=== PATIENT | female | born 1990 | race American Indian/Alaskan Native ===

== ENCOUNTER 2016-07-05 19:49 | Emergency (ER) | payer BC ==
[2016-07-05 20:56] LABS: Bilirubin,Urine NEG (Negative); Blood,Urine NEG (Negative); Ketones,Urine TR mg/dL (Negative); Leukocyte Esterase,Urine NEG (Negative); Mucus,Urine FEW /HPF; Nitrite,Urine NEG (Negative); Protein,Urine <15 mg/dL mg/dL (Negative); Urobilinogen,Urine < 2.0 mg/dL (<2.0); WBC,Urine < 1.0 /HPF (0.0-6.0)
--- NOTE | 2016-07-05 22:31 | Emergency Department Report ---
HPI - General Chief Complaint: Urogenital-Female Time Seen by Provider: 07/05/16 22:30 - HPI HPI: 26-year-old -[place] female comes in to concern for not having a period for 2 months she's reports is taken several home tests were all were negative. She reports she started having cramping abdominal pain and back pain over the last 2 weeks. Patient does report to me that she's had these symptoms before she was seen by her [facility]NA[facility] doctor and they were considering doing a workup for PCOS. . Vaginal discharge denies any vaginal bleeding. Patient does admit to her system and weight fluctuates and having bloating feeling. Denies any nausea vomiting no fever no chills. She reports that the pain feels like she is having cramps as if she was having her period. ED Past Medical Hx - Past Medical History Previous Medical History?: No - Surgical History Past Surgical History?: No - Social History Smoking Status: Never Smoker Substance Use Type: None ED Review of Systems ROS: Stated complaint: LOWER ABD PAIN, BACK PAIN Other details as noted in HPI Constitutional: denies: chills, fever Eyes: denies: eye pain, eye discharge, vision change ENT: denies: ear pain, throat pain Respiratory: denies: cough, shortness of breath, wheezing Cardiovascular: denies: chest pain, palpitations Gastrointestinal: abdominal pain (crampy). denies: nausea, vomiting, diarrhea, constipation Genitourinary: abnormal menses. denies: urgency, dysuria, frequency, discharge Musculoskeletal: back pain (lower back pain) Skin: denies: rash, lesions Neurological: denies: headache, weakness, paresthesias Psychiatric: denies: anxiety, depression Hematological/Lymphatic: denies: easy bleeding, easy bruising Physical Exam - Physical Exam Vital Signs: Vital Signs 07/05/16 20:27 Temperature 98.2 F Pulse Rate 89 Respiratory 18 Rate Blood Pressure 156/98 O2 Sat by Pulse 99 Oximetry General: GENERAL: Alert and oriented x3, no apparent distress, Normal Gait, atraumatic. HEAD: Head is normocephalic and a-traumatic. NOSE: Nose symetrical, Nontender,Nares appeared normal. MOUTH:Mouth is well hydrated and without lesions. Tonsils nonerythematous or swollen, Uvula midline, Tongue not elevated. Mucous membranes are moist. Posterior pharynx clear, no exudate or lesions. Patent airways. NECK: Supple. Non edematous, No carotid bruits. No lymphadenopathy or thyromegaly. LUNGS: Symetrical with respiration, No wheezing, no rales or crackles, CTAB. HEART: S1, S2 present, regular rate and rhythm without murmur, no rubs, no gallops. ABDOMEN: No organomegaly was noted,Positive bowel sounds, soft, and non- distended. . Nontender to palpation on all Quadrants, NO CVA tenderness. EXTREMITIES/MUSCULOSKELETAL: No cyanosis, clubbing, rash, lesions or edema. Full ROM bilaterally. UE/LE Pulses 2+ bilaterally. LE and UE 5+ strength bilaterally NEUROLOGIC: No focal Deficit, Cranial nerves II through XII are grossly intact. No loss of sensation, No facial droop, PSYCHIATRIC: Mood is congruent with affect, denies suicidal or homicidal ideations. SKIN: Warm and dry, No lesions, No ulceration or induration present ED Course Vital Signs 07/05/16 20:27 Temperature 98.2 F Pulse Rate 89 Respiratory 18 Rate Blood Pressure 156/98 O2 Sat by Pulse 99 Oximetry ED Medical Decision Making - Medical Decision Making Patient's been evaluated by this provider in fast track. Discussed the patient her labs that her test was negative and a urine was not abnormal. Constipation that she needs to really follow up with her [facility] doctor for further evaluation for possible PCO S. Patient verbalized understanding. Critical care attestation.: If time is entered above; I have spent that time in minutes in the direct care of this critically ill patient, excluding procedure time. 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 He can also follow up with Dr. Aiken as well. Referrals: Katherine Alvarez Dr [Other] - 3-5 Days SUJIT CARRILLO MD [Referring] - 3-5 Days Forms: Work/School Release Form(ED)
[2016-07-05 23:15] VITALS: BP 139/95
== END 2016-07-05 23:11 | disposition home or self-care (01) ==
LOC: ED 19:49
DX: N91.2 Amenorrhea, unspecified (principal)
CPT/HCPCS: 81001; 81025; 99282